=== PATIENT | male | born 1980 | race Caucasian/White ===

== ENCOUNTER 2016-05-12 14:41 | Outpatient (CLI) ==
[2016-02-24 15:43] VITALS: BMI 37.5
--- NOTE | 2016-05-12 15:15 | DI ---
EXAM: Two views of the chest. History: Cough. Findings: Heart size is normal. No focal consolidation. No appreciable pleural fluid and no pneum othorax. Calcified granuloma within the right upper lobe. No acute osseous abnormalities. Impression: No acute cardiopulmonary process.
== END 2016-05-12 14:42 | disposition home or self-care (01) ==
LOC: RAD 14:41
PROVIDERS: ATTEND Nurse Practitioner Family
DX: R05 Cough (principal); R53.83 Other fatigue

== ENCOUNTER 2016-07-15 15:29 | Emergency (ER) ==
[2016-07-15 15:30] VITALS: BMI 37.5
[2016-07-15 15:35] VITALS: BP 133/88; TEMP 97.1
[2016-07-15] MEDS ORDERED: FLUORETS OP STA (15:50)
[2016-07-15] MEDS ORDERED: EYE-STREAM OP STA (15:50)
[2016-07-15] MEDS ORDERED: PROPARACAINE 0.5% OP STA (15:50)
--- NOTE | 2016-07-15 15:50 | ED.PDOC ---
General ED Provider: Dr. DANNA BALTAZAR JR Chief Complaint: Eye Problem Stated Complaint: WOKE UP WITH RIGHT EYE WATERY AND RED. FEELS LIKE SOMETHING IS IN EYE WHEN HE CLOSES EYE. [ End ]97.1 78 16 98% 133/88 6/10 RIGHT EYE PAIN , RED. [ End ] Time Seen by Physician: 17:07 Mode of Arrival: Walk-In Information Source: Patient Exam Limitations: No limitations Primary Care Provider: MANUELA POON Nursing and Triage Documentation Reviewed and Agree: No Review of Systems - Review Of Systems Constitutional: Reports: No symptoms Eyes: Reports: Blurred vision, Foreign body sensation, Pain Ears, Nose, Mouth, Throat: Reports: No symptoms Respiratory: Reports: No symptoms Cardiac: Reports: No symptoms GI: Reports: No symptoms : Reports: No symptoms Musculoskeletal: Reports: No symptoms Skin: Reports: No symptoms Neurological: Reports: No symptoms Endocrine: Reports: No symptoms Hematologic/Lymphatic: Reports: No symptoms All Other Systems: Other Past Medical History - Past Medical History Previously Healthy: Yes Endocrine: Reports: None Cardiovascular: Reports: None Respiratory: Reports: None Hematological: Reports: None Gastrointestinal: Reports: None Genitourinary: Reports: None Neuro/Psych: Reports: None Musculoskeletal: Reports: None Cancer: Reports: None - Surgical History General Surgical History: Reports: Unknown - Family History Family History: Reports: Unknown - Social History Smoking Status: Never smoker Hx Substance Use: No Alcohol Screening: None - Immunizations Tetanus Shot up to Date: Yes Physical Exam - Physical Exam Appearance: Well-appearing Pain Distress: Moderate Eyes: SHARAD, EOMI, Conjunctiva inflammed ENT: Ears normal, Nose normal, Oropharynx normal Neck: Supple Respiratory: Airway patent, Breath sounds clear, Breath sounds equal, Respirations nonlabored Cardiovascular: RRR, Pulses normal, No rub, No murmur GI/: Soft, Nontender, No masses, Bowel sounds normal, No Organomegaly Musculoskeletal: Normal strength, ROM intact, No edema, No calf tenderness Skin: Warm, Dry, Normal color Neurological: Sensation intact, Motor intact, Reflexes intact, Cranial nerves intact, Alert, Oriented Psychiatric: Affect appropriate, Mood appropriate Procedures - Eye Procedure Location of Foreign Body: r eye Tetracaine Drops Administered: No (propericaine) Eye FB Removal: Other Foreign Body Completely Removed: Yes (no fb found on exam) Eye Irrigated: Yes Critical Care Note - Critical Care Note Total Time (mins): 0 Course - Course Vital Signs: Temp Pulse Resp BP Pulse Ox 07/15/16 15:32 97.1 F L 78 16 133/88 98 Departure - Departure Time of Disposition: 17:08 Disposition: HOME SELF-CARE Discharge Problem: Superficial eye injury Instructions: Eye Pain (ED) Condition: Good Pt referred to PMD for follow-up: Yes Additional Instructions: eye drops four times a day for three days may use eye wash in between recheck customer account manager or building consultant if any worse or not resolving 1-2 days( check with slit lamp) Prescriptions: Sulfacetamide Sodium [Bleph-10 Opth Nicole] 2 drop OP QID #1 bottle Allergies/Adverse Reactions: Allergies No Known Allergies Allergy (Verified 07/15/16 15:31) Home Medications: Ambulatory Orders Sulfacetamide Sodium [Bleph-10 Opth Nicole] 2 drop OP QID #1 bottle 07/15/16
== END 2016-07-15 17:25 | disposition home or self-care (01) ==
LOC: ED 15:29
DX: S05.91XA Unspecified injury of right eye and orbit, initial encounter (principal)
CPT/HCPCS: 99282

== ENCOUNTER 2016-11-12 13:28 | Outpatient (CLI) ==
[2016-11-12 13:45] LABS: BASOPHILS % (AUTO) 0.6 % (0.0-3.0); EOSINOPHILS # (AUTO) 0.2 K/ul (0.0-0.7); EOSINOPHILS % (AUTO) 2.1 % (0.0-7.0); HEMATOCRIT 46.2 % (42.0-52.0); HEMOGLOBIN 15.5 g/dl (14.0-18.0); IMMATURE GRANULOCYTE % (AUTO) 0.3 % (0.0-5.0); LYMPHOCYTES # (AUTO) 1.7 K/uL (0.60-3.4); LYMPHOCYTES % (AUTO) 23.7 (10.0-50.0); MEAN CORPUSCULAR HEMOGLOBIN 29.9 pg (27.0-31.0); MEAN CORPUSCULAR HGB CONC 33.5 (31.8-35.4); MEAN CORPUSCULAR VOLUME 89.2 fl (80.0-94.0); MONOCYTES # (AUTO) 0.5 K/uL (0.4-2.0); MONOCYTES % (AUTO) 7.2 (0-10); NEUTROPHILS # (AUTO) 4.8 K/ul (2.0-6.9); NEUTROPHILS % (AUTO) 66.1; PLATELET COUNT 207 10^3/uL (140-440); RED BLOOD COUNT 5.18 10^6/ul (4.70-6.10); WHITE BLOOD COUNT 7.25 K/ul (4.2-10.2)
[2016-11-12 14:24] LABS: ALBUMIN 4.4 g/dL (3.4-5.0); ALBUMIN/GLOBULIN RATIO 1.26; ANION GAP 17.4; BILIRUBIN,TOTAL 0.89 mg/dL (0.00-1.20); BUN/CREATININE RATIO 11.45; CHOL/HDL RATIO 4.3 (4.5-6.4); CREATININE 0.96 mg/dL (0.60-1.10); POTASSIUM 4.4 mmol/L (3.5-5.1); TOTAL PROTEIN 7.9 g/dL (6.4-8.2)
== END 2016-11-12 13:29 | disposition home or self-care (01) ==
LOC: CAR 13:28
PROVIDERS: ATTEND Nurse Practitioner Family
DX: Z00.00 Encounter for general adult medical examination without abnormal findings (principal); R53.83 Other fatigue; R63.5 Abnormal weight gain
CPT/HCPCS: 36415; 80053; 80061; 84443; 85025; 93005; 93010

== ENCOUNTER 2016-11-14 02:48 | Emergency (ER) ==
[2016-11-14 02:49] VITALS: BMI 37.5
[2016-11-14 02:59] VITALS: BP 144/85; TEMP 98.6
[2016-11-14] MEDS ORDERED: SODIUM CHLORIDE 1,000 ML IV STA (03:47)
--- NOTE | 2016-11-14 03:51 | ED.PDOC ---
General ED Provider: Dr. MAEVE MENDEZ Chief Complaint: Non-specific Complaint Stated Complaint: Patient was working out side , came home was feeling weak, muscle cramps, so started drinking water, now started having diarrhea. Time Seen by Physician: 03:49 Mode of Arrival: Walk-In Information Source: Patient Primary Care Provider: FIONA KERR Nursing and Triage Documentation Reviewed and Agree: Yes Neurological Complaint Exam - Weakness Complaint/Exam Onset: Gradual Symptoms Are: Still present Episodes Lasting: Hours Initial Severity: Moderate Current Severity: Moderate Character: Reports: Lightheaded, Weak Aggravating: Reports: Exertion Alleviating: Reports: None Associated Signs and Symptoms: Reports: Nausea, Diaphoresis. Denies: Vomiting, Tinnitus, Chest pain, Short of air, Palpitations, Unsteady gait, GI blood loss, Visual changes, Decreased oral intake, Change in medication, Change in diet, OTC meds, Loss of balance Cardiac Risk Factors: Reports: None CVA Risk Factors: Reports: None Related Surgical History: Reports: None JVD Present: No Carotid Bruit Present: No Rectal Heme Positive: No Nystagmus Present: No Gag Reflex Present: No Meningeal Signs Positive: No Focal Weakness: Present: None Focal Sensory Loss: Present: None Gait: Normal [id number]: Normal Findings Romberg Test Positive: No Babinski Sign: Negative Right, Negative Left Heel to Toe Normal: No Differential Diagnoses: Hypovolemia, Metabolic abnormalities, Other (dehydration ) Review of Systems - Review Of Systems Constitutional: Reports: Malaise, Weakness Eyes: Reports: No symptoms Ears, Nose, Mouth, Throat: Reports: No symptoms Respiratory: Reports: No symptoms Cardiac: Reports: No symptoms GI: Reports: No symptoms : Reports: No symptoms Musculoskeletal: Reports: No symptoms Skin: Reports: No symptoms Neurological: Reports: No symptoms Endocrine: Reports: No symptoms Hematologic/Lymphatic: Reports: No symptoms All Other Systems: Reviewed and Negative Past Medical History - Past Medical History Previously Healthy: Yes Endocrine: Reports: None Cardiovascular: Reports: None Respiratory: Reports: None Hematological: Reports: None Gastrointestinal: Reports: None Genitourinary: Reports: None Neuro/Psych: Reports: None Musculoskeletal: Reports: None Cancer: Reports: None - Surgical History General Surgical History: Reports: Unknown - Family History Family History: Reports: Unknown - Social History Smoking Status: Never smoker Hx Substance Use: No Alcohol Screening: Occasionally - Immunizations Tetanus Shot up to Date: Yes Physical Exam - Physical Exam Appearance: Ill-appearing, Obese Ill-appearing: Moderate Eyes: SHARAD, EOMI, Conjunctiva clear ENT: Ears normal, Nose normal, Oropharynx normal Respiratory: Airway patent, Breath sounds clear, Breath sounds equal, Respirations nonlabored Cardiovascular: RRR, Pulses normal, No rub, No murmur GI/: Soft, Nontender, No masses, Bowel sounds normal, No Organomegaly Musculoskeletal: Normal strength, ROM intact, No edema, No calf tenderness Skin: Warm, Dry, Normal color Neurological: Sensation intact, Motor intact, Reflexes intact, Cranial nerves intact, Alert, Oriented Psychiatric: Affect appropriate, Mood appropriate Critical Care Note - Critical Care Note Total Time (mins): 0 Course - Course Hematology/Chemistry: 11/14/16 03:50 11/14/16 03:50 Orders, Labs, Meds: Lab Review 11/14/16 03:50 WBC 9.42 RBC 5.49 Hgb 16.4 Hct 48.4 MCV 88.2 MCH 29.9 MCHC 33.9 RDW Coeff of Dionne 13.0 Plt Count 215 Immature Gran % (Auto) 0.5 Neut % (Auto) 89.2 Lymph % (Auto) 5.4 L [place] % (Auto) 4.4 Eos % (Auto) 0.1 Baso % (Auto) 0.4 Immature Gran # (Auto) 0.1 Neut # 8.4 H Lymph # 0.5 L [place] # 0.4 Eos # 0.0 Baso # 0.0 Sodium 140 Potassium 3.8 Chloride 107 Carbon Dioxide 19 L Anion Gap 17.8 BUN 15 Creatinine 0.98 Estimated GFR (MDRD) 86.00 BUN/Creatinine Ratio 15.30 Glucose 128 H Calcium 8.8 Total Bilirubin 0.97 AST 35 ALT 52 Alkaline Phosphatase 74 Total Protein 8.1 Albumin 4.3 Globulin 3.8 Albumin/Globulin Ratio 1.13 Urine Color Yellow Urine Clarity Clear Urine pH 5.5 Ur Specific [place] 1.020 Urine Protein 1+ Urine Glucose (UA) Negative Urine Ketones Negative Urine Blood Negative Urine Nitrite Negative Urine Bilirubin Negative Urine Urobilinogen 0.2 Ur Leukocyte Esterase Negative Ur Squamous Epith Cells 2-5 Urine Mucus Trace Orders Category Date Time Status ED IV/MEDIPORT/POWERPORT .ONCE EMERGENCY 11/14/16 03:47 Active CBC W/ AUTO DIFF Stat LAB 11/14/16 03:50 Completed COMPREHENSIVE METABOLIC PANEL Stat LAB 11/14/16 03:50 Completed UA [URINALYSIS C & S IF INDICATED] Stat LAB 11/14/16 03:50 Completed 0.9 % Sodium Chloride [Saline Flush] MEDS 11/14/16 03:47 Discontinued 1 syr IVF PRN PRN Sodium Chloride 0.9% [Sodium Chloride] 1,000 ml MEDS 11/14/16 03:47 Discontinued IV 100 mls/hr Medications Discontinued Medications Generic Name Dose Route Start Last Admin Trade Name Freq PRN Reason Stop Dose Admin Sodium Chloride 1,000 mls @ 100 mls/hr 11/14/16 03:47 11/14/16 04:01 Sodium Chloride IV 11/14/16 13:46 100 mls/hr .Q10H STA Administration Sodium Chloride 1 syr 11/14/16 03:47 Saline Flush IVF PRN PRN To flush IV Vital Signs: Temp Pulse Resp BP Pulse Ox 11/14/16 02:49 98.6 F 117 H 20 144/85 H 97 Departure - Departure Time of Disposition: 13:00 Disposition: HOME SELF-CARE Discharge Problem: General symptom Heat exhaustion Qualifiers: Encounter type: initial encounter Qualifier Code: (T67.5XXA) Heat exhaustion, unspecified, initial encounter Instructions: Dehydration (ED) Condition: Stable Pt referred to PMD for follow-up: Yes Additional Instructions: Increase hydration Safety while working in sun gatorade drink Allergies/Adverse Reactions: Allergies No Known Allergies Allergy (Verified 11/14/16 02:59) Home Medications: Ambulatory Orders 1 [No Reported Medications] 11/14/16 Disposition Discussed With: Patient
[2016-11-14 03:59] LABS: BASOPHILS % (AUTO) 0.4 % (0.0-3.0); EOSINOPHILS % (AUTO) 0.1 % (0.0-7.0); HEMATOCRIT 48.4 % (42.0-52.0); HEMOGLOBIN 16.4 g/dl (14.0-18.0); IMMATURE GRANULOCYTE % (AUTO) 0.5 % (0.0-5.0); LYMPHOCYTES # (AUTO) 0.5 K/uL (0.60-3.4); LYMPHOCYTES % (AUTO) 5.4 (10.0-50.0); MEAN CORPUSCULAR HEMOGLOBIN 29.9 pg (27.0-31.0); MEAN CORPUSCULAR HGB CONC 33.9 (31.8-35.4); MEAN CORPUSCULAR VOLUME 88.2 fl (80.0-94.0); MONOCYTES # (AUTO) 0.4 K/uL (0.4-2.0); MONOCYTES % (AUTO) 4.4 (0-10); NEUTROPHILS # (AUTO) 8.4 K/ul (2.0-6.9); NEUTROPHILS % (AUTO) 89.2; PLATELET COUNT 215 10^3/uL (140-440); RED BLOOD COUNT 5.49 10^6/ul (4.70-6.10); WHITE BLOOD COUNT 9.42 K/ul (4.2-10.2)
[2016-11-14 04:00] LABS: ADD URINE MICROSCOPIC YES; BILIRUBIN,URINE Negative (NEGATIVE); KETONES,URINE Negative (NEGATIVE); LEUKOCYTE ESTERASE ,URINE Negative (NEGATIVE); NITRITE,URINE Negative (NEGATIVE); PH,URINE 5.5 (5-9); PROTEIN,URINE 1+ (NEGATIVE); URINE, BLOOD Negative (NEGATIVE)
[2016-11-14 04:18] LABS: ALBUMIN 4.3 g/dL (3.4-5.0); ALBUMIN/GLOBULIN RATIO 1.13; ANION GAP 17.8; BILIRUBIN,TOTAL 0.97 mg/dL (0.00-1.20); BUN/CREATININE RATIO 15.3; CALCIUM 8.8 mg/dL (8.2-10.2); CREATININE 0.98 mg/dL (0.60-1.10); POTASSIUM 3.8 mmol/L (3.5-5.1); TOTAL PROTEIN 8.1 g/dL (6.4-8.2)
== END 2016-11-14 05:00 | disposition home or self-care (01) ==
LOC: ED 02:48
DX: T67.5XXA Heat exhaustion, unspecified, initial encounter (principal)
CPT/HCPCS: 36415; 80053; 81001; 85025; 96360; 99283

== ENCOUNTER 2017-08-22 10:53 | Emergency (ER) ==
[2017-08-22 10:53] VITALS: BMI 37.5
[2017-08-22 11:05] VITALS: BP 159/97; TEMP 96.9
--- NOTE | 2017-08-22 11:58 | ED.PDOC ---
General ED Provider: Dr. SHAHEED ABREU Chief Complaint: Fall Stated Complaint: Complains of head trauma and pain to lt wrist. 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 Sustained laceration to his scalp and injury to his lt wrist. Denied LOC. States if laceration needs repaired would prefer sutures instead of carolyne. Time Seen by Physician: 11:15 Mode of Arrival: Walk-In Information Source: Patient Exam Limitations: No limitations Primary Care Provider: FIONA KERR Nursing and Triage Documentation Reviewed and Agree: Yes Reviewed sepsis parameters & appropriate labs ordered?: Yes System Inflammatory Response Syndrome: Not Applicable Sepsis Protocol: For patient's 13 years and over: Temp is 96.8 and below OR 101 and greater Pulse >90 BPM Resp >20/minute Acutely Altered Mental Status Are patient's symptoms suggestive of a new infection, such as: -Pneumonia -Skin, Soft Tissue -Endocarditis -UTI -Bone, Joint Infection -Implantable Device -Acute Abdominal Infection -Wound Infection -Meningitis -Blood Stream Catheter Infection -Unknown System Inflammatory Response Syndrome: Not Applicable Trauma/Injury Complaint Exam - Head Injury Complaint/Exam Location of Pain: Reports: Scalp, Other (Lt wrist and hand) Mechanism of Injury: Reports: Trauma Onset/Duration: Earlier this AM Symptoms Are: Still present Initial Severity: Moderate Current Severity: Mild Character: Reports: Sharp, Dull Aggravating: Reports: None Alleviating: Reports: None Associated Signs and Symptoms: Denies: Confusion, Memory loss, Seizure, Epistaxis, Neck pain, Nausea, Vomiting Loss of Consciousness: None Related History: Denies: Similar episode SDH Risk Factors: Present: None Cervical Spine Injury Risk Factors: Present: None Related Surgical History: Reports: None C-Collar in Place: Applied Backboard in Place: No Head Injury Findings: Present: Normal findings. Absent: Hemotympanum, CSF rhinorrhea, Rubin's sign, [place] eyes, Meningeal signs, Nystagmus Focal Weakness: Present: None Focal Sensory Loss: Present: None Gait: Normal Gag Reflex Present: Yes Finger to Nose: Normal Rhomberg Test Positive: No Babinski Sign: Negative Right, Negative Left Heel to Toe Normal: Yes Differential Diagnoses: Sprain, Strain, Trauma, Other (Closed Head Injury) Review of Systems - Review Of Systems Constitutional: Reports: No symptoms Eyes: Reports: No symptoms Ears, Nose, Mouth, Throat: Reports: No symptoms Respiratory: Reports: No symptoms Cardiac: Reports: No symptoms GI: Reports: No symptoms : Reports: No symptoms Musculoskeletal: Reports: No symptoms, Joint pain Skin: Reports: No symptoms, Other (lacerations scalp) Neurological: Reports: No symptoms Endocrine: Reports: No symptoms Hematologic/Lymphatic: Reports: No symptoms All Other Systems: Reviewed and Negative Past Medical History - Past Medical History Previously Healthy: Yes Endocrine: Reports: None Cardiovascular: Reports: None Respiratory: Reports: None Hematological: Reports: None Gastrointestinal: Reports: None Genitourinary: Reports: None Neuro/Psych: Reports: None Musculoskeletal: Reports: None Cancer: Reports: None - Surgical History General Surgical History: Reports: Unknown - Family History Family History: Reports: Unknown - Social History Smoking Status: Never smoker Hx Substance Use: No Alcohol Screening: None - Immunizations Tetanus Shot up to Date: Yes Physical Exam - Physical Exam Appearance: Well-appearing (AAO X 3; Head, scalp and Lt Wrist uncomfortable), Well-nourished, Obese Ill-appearing: None Pain Distress: Mild Eyes: SHARAD, EOMI, Conjunctiva clear, Right pupil size (3mm reactive), Left pupil size (3mm reactive) ENT: Ears normal, Nose normal (No Epistaxsis), Oropharynx normal Neck: Supple Respiratory: Airway patent, Breath sounds clear, Breath sounds equal, Respirations nonlabored Cardiovascular: RRR, Pulses normal, No rub, No murmur GI/: Soft, Nontender, No masses, Bowel sounds normal, No Organomegaly Musculoskeletal: Normal strength, ROM intact, No edema, No calf tenderness, Limited ROM (lt wrist tenderness to palpation, ROM active/passive normal) Skin: Warm (Scalp laceration ), Dry, Normal color Neurological: Sensation intact, Motor intact, Reflexes intact, Cranial nerves intact, Alert, Oriented Psychiatric: Affect appropriate, Mood appropriate Interpretation - Radiology Interpretation Radiology Interpretation By: Radiologist Radiology Results: Negative Exam Interpreted: CXR, CT Scan (Head and Cervical Spine), Other (Wrist Xray) Procedures - Laceration/Wound Repair Scalp Wound Description: Linear (mid parietal), Other (mid frontal-superficial/no repair required) Wound Length (cm): 2 Wound Width: 2mm Wound Depth: 2mm Wound Explored: Clean Wound Irrigated: Yes Wound Prep: Saline, Hibiclens, Betadine Anesthesia: Lidocaine Wound Margins: Other (approximated well) Wound Repaired With: Sutures Suture Size and Type: 3-0 nylon, Number of Sutures: 4 Layer Closure?: No Sterile Dressing Applied?: Yes Critical Care Note - Critical Care Note Total Time (mins): 60 (Monitored neurological status due to blunt head trauma- remained stable) Course - Course Hematology/Chemistry: 08/22/17 12:25 08/22/17 12:25 Orders, Labs, Meds: Lab Review 08/22/17 08/22/17 12:25 12:25 WBC 7.71 RBC 5.08 Hgb 15.3 Hct 45.4 MCV 89.4 MCH 30.1 MCHC 33.7 RDW Coeff of Dionne 12.8 Plt Count 187 Immature Gran % (Auto) 0.4 Neut % (Auto) 69.0 Lymph % (Auto) 19.5 [place] % (Auto) 7.8 Eos % (Auto) 2.7 Baso % (Auto) 0.6 Immature Gran # (Auto) 0.0 Neut # (Auto) 5.3 Lymph # (Auto) 1.5 [place] # (Auto) 0.6 Eos # (Auto) 0.2 Baso # (Auto) 0.1 Sodium 141 Potassium 4.7 Chloride 108 H Carbon Dioxide 24 Anion Gap 13.7 BUN 15 Creatinine 0.91 Estimated GFR (MDRD) 93.00 BUN/Creatinine Ratio 16.48 Glucose 96 Calcium 9.7 Total Bilirubin 1.1 AST 32 ALT 43 Alkaline Phosphatase 62 Total Protein 7.5 Albumin 4.1 Globulin 3.4 Albumin/Globulin Ratio 1.21 Orders Category Date Time Status CBC W/ AUTO DIFF Stat LAB 08/22/17 12:25 Completed CMP [COMPREHENSIVE METABOLIC PANEL] Stat LAB 08/22/17 12:25 Completed Lidocaine HCl/Pf [Lidocaine HCl 1% Sdv] MEDS 08/22/17 14:48 Discontinued 5 ml .ROUTE .STK-MED ONE Lidocaine HCl/Pf [Lidocaine HCl 1% Sdv] MEDS 08/22/17 15:03 Discontinued 5 ml SUBCUT ONCE STA Lidocaine HCl/Pf [Xylocaine-Mpf 2% Ampul] MEDS 08/22/17 14:41 Discontinued 10 ml INJ ONCE STA CHEST, 2 VIEWS PA & LAT Stat RADS 08/22/17 12:[address] CERVICAL SPINE W/O CONTRAST Stat RADS 08/22/17 12:[address] HEAD W/O CONTRAST Stat RADS 08/22/17 12:06 Completed HAND, LEFT 3 VIEWS Stat RADS 08/22/17 12:15 Completed WRIST, LEFT 3 VIEWS Stat RADS 08/22/17 12:15 Completed Medications Discontinued Medications Generic Name Dose Route Start Last Admin Trade Name Holley PRN Reason Stop Dose Admin Lidocaine HCl 10 ml 08/22/17 14:41 08/22/17 15:08 Xylocaine-Mpf 2% Ampul INJ 08/22/17 14:42 10 ml ONCE STA Administration Lidocaine HCl 5 ml 08/22/17 15:03 08/25/17 10:05 Lidocaine Hcl 1% Sdv SUBCUT 08/22/17 15:04 5 ml ONCE STA Administration Vital Signs: Temp Pulse Resp BP Pulse Ox 08/22/17 10:54 96.9 F L 82 16 159/97 H 95 Departure - Departure Time of Disposition: 15:10 Disposition: HOME SELF-CARE Discharge Problem: Laceration of scalp, Blunt head trauma, Wrist strain Instructions: Care For Your Stitches (ED), Musculoskeletal Pain (ED) Condition: Good Pt referred to PMD for follow-up: Yes (5-7 days) IPMP verified?: No Additional Instructions: Follow wound care instructions Tylenol or advil as needed for pain Monitor of changes in mental status Follow up pcp in 5 days for recheck Prescriptions: Cephalexin [Keflex] 500 mg PO BID #14 capsule Allergies/Adverse Reactions: Allergies No Known Allergies Allergy (Verified 08/22/17 11:04) Home Medications: Ambulatory Orders Cephalexin [Keflex] 500 mg PO BID #14 capsule 08/22/17 Disposition Discussed With: Patient
--- NOTE | 2017-08-22 12:45 | CT ---
EXAM: CT of the head without contrast History: Head and neck trauma. Comparison: Head CT from 02/2013 Technique: Multiplanar CT images through the head were obtained without the administration of IV con trast Findings: Stable chronic mucous retention cyst or polyp within the left ethmoid air cells measuring 1.4 cm. No air-fluid levels are seen within the sinuses. Mastoid air cells are clear in general. No acute calvarial abnormalities. Intracranially the ventricular and cisternal spaces are normal in size, shape and configuration for a patient of this age. No dominant mass or midline shift. No hydrocephalous. No acute intracranial hemorrhage or abnormal extraaxial fluid collections. Impression: 1. No acute intracranial process. 2. Stable chronic mucous retention cyst or polyp within the left ethmoid air cells.
--- NOTE | 2017-08-22 12:57 | CT ---
EXAM: CT of the cervical spine without contrast History: Head and neck trauma. Technique: Multiplanar CT images through the cervical spine were obtained without the administration of IV contrast Findings: The visualized upper lungs are free of consolidation. The visualized airway remains paten t. No acute fracture or subluxation of the cervical spine. Mild to moderate disc space narrowing at C6- 7 with small osteophytes. No prevertebral soft tissue swelling. Predental space is not widened. Mi ld bony central canal stenosis at C6-7 secondary to posterior disc osteophyte complex. Mild to moder ate right-sided bony neural foraminal narrowing at C3-4 secondary to uncovertebral and facet hypertro phy. Moderate bilateral bony neural foraminal narrowing at C6-7 secondary to uncovertebral and facet hypertrophy. Impression: No acute osseous abnormality of the cervical spine
--- NOTE | 2017-08-22 13:01 | DI ---
EXAM: Three views of the left wrist. History: Left wrist trauma. Findings: No acute fracture or dislocation. No abnormal calcifications or radiopaque foreign bodies . Borderline negative ulnar variance. Joint spaces are relatively preserved. Impression: 1. No acute osseous abnormality. 2. Borderline negative ulnar variance.
--- NOTE | 2017-08-22 13:02 | DI ---
EXAM: Two views of the chest. History: Chest trauma. Comparison: Chest radiograph 05/12/2016 Findings: Heart size is normal. No focal consolidation. No appreciable pleural fluid and no pneumo thorax. No acute osseous abnormalities. Calcified granuloma again seen within the right lung. Impression: No acute cardiopulmonary process
--- NOTE | 2017-08-22 13:02 | DI ---
EXAM: Three views of the left hand. History: Left hand trauma. Findings: No acute fracture or dislocation. No abnormal calcifications or radiopaque foreign bodies . Borderline negative ulnar variance. Joint spaces are preserved. Impression: 1. No acute osseous abnormality. 2. Borderline negative ulnar variance
[2017-08-22] MEDS ORDERED: XYLOCAINE MPF 2% INJ STA (14:41)
[2017-08-22] MEDS ORDERED: LIDOCAINE HCL 1% SDV SUBCUT STA (15:03)
[2017-08-22] MEDS: LIDOCAINE HCL 1% SDV ONE ×2 (15:04)
== END 2017-08-22 15:26 | disposition home or self-care (01) ==
LOC: ED 10:53
DX: S01.01XA Laceration without foreign body of scalp, initial encounter (principal); S09.90XA Unspecified injury of head, initial encounter; S66.912A Strain of unspecified muscle, fascia and tendon at wrist and hand level, left hand, initial encounter; W19.XXXA Unspecified fall, initial encounter
CPT/HCPCS: 36415; 80053; 85025; 99284